=== PATIENT | female | born 1950 | race Caucasian/White ===

== ENCOUNTER 2017-10-26 19:06 | Emergency (ER) | payer OTHER ==
[~2017-10-26] VITALS: Ht 165.1 cm; Wt 83.2 kg
[~2017-10-26 19:06] MED LIST: ASPIR-TRIN325 M1 PO; CARBAMAZEPINE100 MG PO; LIPITOR40 MG PO; LISINOPRIL20 MG PO
[2017-10-26 20:08] LABS: HEMATOCRIT 45.3 % (36.0-46.0); HEMOGLOBIN 15.4 G/DL (11.9-15.5); MCH 31.2 PG (29.0-34.0); MCV 91.7 FL (83-99); PLATELET COUNT 244 K/uL (156-360); RBC DIS.WIDTH-CV 12.7 % (11.8-14.6); RBC DIS.WIDTH-SD 42.8 % (39-53); RED BLOOD COUNT 4.94 M/uL (3.80-5.20); WHITE BLOOD COUNT 8.5 K/uL (4.1-10.2)
[2017-10-26 20:18] LABS: ALBUMIN 4.6 g/dL (3.2-4.8)
[2017-10-26 20:19] LABS: CHLORIDE 104 mEq/L (99-109); POTASSIUM 4.7 mEq/L (3.7-5.4); SODIUM 140 mEq/L (136-147)
[2017-10-26 20:21] LABS: GLUCOSE 126 mg/dL (70-99); TOTAL PROTEIN 7.9 g/dL (6.4-8.3)
[2017-10-26 20:23] LABS: TOTAL BILIRUBIN 0.4 mg/dL (0.0-1.0)
[2017-10-26 20:24] LABS: ALKALINE PHOSPHATASE 85 IU/L (3-129)
[2017-10-26 20:25] LABS: GFR ESTIMATE (CALCULATED) 59 mL/min/
[2017-10-26 20:26] LABS: AST (GOT) 28 IU/L (2-34); UREA NITROGEN (BUN) 11 mg/dL (9-23)
[2017-10-26 20:28] LABS: ALT (GPT) 35 IU/L (3-49); LIPASE 44 U/L (1.0-51.0)
[2017-10-26 20:31] LABS: TROP-I INTERPRETATION NEGATIVE; TROPONIN-I < 0.01 ng/mL (0.0-0.30)
[2017-10-26 22:00] LABS: APPEARANCE CLEAR ((CLEAR)); BILIRUBIN NEGATIVE; BLOOD NEGATIVE; COLOR YELLOW ((YELLOW)); GLUCOSE (STRIP) NEGATIVE; KETONES NEGATIVE; LEUKOCYTES MODERATE; NITRITE NEGATIVE; PROTEIN (STRIP) NEGATIVE; UROBILINOGEN 0.2 MG/DL (0.2-1.0)
[2017-10-26 22:10] LABS: BACTERIA 1+ /HPF; EPITHELIAL CELLS RARE /HPF; MUCUS TRACE /LPF; RED BLOOD CELLS 0-5 /HPF (0-5); UCUL ADDED? YES; WHITE BLOOD CELLS 15-20 /HPF (0-5)
[2017-10-26] MEDS ORDERED: PRILOSEC20 MG PO (22:59)
[2017-10-26 23:06] VITALS: BP 122/75
== END 2017-10-26 23:12 | disposition home or self-care (01) ==
LOC: EME 19:06
DX: R10.9 Unspecified abdominal pain (principal); I10 Essential (primary) hypertension; E78.5 Hyperlipidemia, unspecified; Z87.891 Personal history of nicotine dependence; Z88.8 Allergy status to other drugs, medicaments and biological substances
CPT/HCPCS: 80053; 81003; 83690; 84484; 85027; 87086; 93005; 99281; 99283